=== PATIENT | male | born 1995 | race Caucasian/White ===

== ENCOUNTER 2018-09-08 20:37 | Emergency (ER) | payer SELFPAY ==
[~2018-09-08] VITALS: Ht 172.7 cm; Wt 82.0 kg
[2018-09-08] MEDS ORDERED: LORAZEPAM 0.5MG TABLET PO ONE (21:45)
[2018-09-09 00:46] VITALS: BP 119/57
== END 2018-09-09 00:46 | disposition home or self-care (01) ==
LOC: ER 20:37
DX: R07.89 Other chest pain (principal); R00.2 Palpitations
CPT/HCPCS: 71045; 93005; 99283